=== PATIENT | female | born 1980 | race African-American/Black ===

== ENCOUNTER 2016-07-23 07:14 | Outpatient (CLI) | payer MEDICAID ==
[~2016-07-23] VITALS: Ht 172.7 cm; Wt 100.0 kg
[2016-07-23 07:30] VITALS: BP 131/85; PULSE 96; TEMP 98.5
[2016-07-23 09:20] VITALS: BP 132/79; PULSE 98
[2016-07-23 10:15] VITALS: BP 124/68; PULSE 89
== END 2016-07-23 11:00 | disposition home or self-care (01) ==
LOC: LDRO 07:14
DX: Z02.89 Encounter for other administrative examinations (principal)

== ENCOUNTER 2016-07-24 07:17 | Inpatient (IN) | payer MEDICAID ==
[~2016-07-24] VITALS: Ht 172.7 cm; Wt 99.1 kg
[2016-07-24] VITALS (62 sets, daily range): BP systolic 102–161; BP diastolic 51–94; PULSE 79–116; TEMP 97.9–99
[2016-07-24 09:40] LABS: AMPHETAMINE URINE NEGATIVE; BARBITURATES URINE NEGATIVE; BENZODIAZEPINES URINE NEGATIVE; BUPRENORPHINE URINE NEGATIVE; METHADONE URINE NEGATIVE; OPIATES URINE NEGATIVE; OXYCODONE URINE NEGATIVE; PHENCYCLIDINE URINE NEGATIVE; PROPOXYPHENE URINE NEGATIVE; THC CANNABINOIDS URINE NEGATIVE
[2016-07-24 09:47] LABS: BASO % 0.3 % (0.0-2.0); EOS # 0.1 (0.0-0.7); EOS % 1.4 % (0-4.0); GRAN # 4.7 (1.4-6.5); GRAN % 67.8 % (42.2-75.2); LYMPH # 1.6 (1.2-3.4); LYMPH % 23.3 % (20.0-51.0); MEAN CELL VOLUME 66 fl (80.0-100.0); MEAN CORPUSCULAR HGB CONC 32 g/dl (33.0-37.0); MONO # 0.5 (0.1-0.6); MONO % 6.5 % (1.7-9.3); PLATELET COUNT 176 K/mm3 (130-400); REDCELL DISTRIBUTION WIDTH-CV 17.7 % (11.5-14.5)
[2016-07-24 09:48] LABS: HEMATOCRIT 31.8 % (37.0-47.0); HEMOGLOBIN 10.1 g/dl (12.5-16.0); MEAN CORPUSCULAR HEMOGLOBIN 21 pg (27.0-31.0)
[2016-07-25] VITALS (10 sets, daily range): BP systolic 112–137; BP diastolic 56–74; PULSE 71–107; TEMP 98.1–98.7
[2016-07-25] MEDS ORDERED: IBU600 MG PO (10:21)
[2016-07-25] MEDS ORDERED: PERCOCET 325 MG1 TA2 PO (10:21)
[2016-07-26 07:36] VITALS: BP 129/69; PULSE 85; TEMP 97.4
[2016-07-26 07:37] LABS: BASO % 0.2 % (0.0-2.0); EOS # 0.1 (0.0-0.7); GRAN % 67.7 % (42.2-75.2); LYMPH # 2.2 (1.2-3.4); LYMPH % 24.8 % (20.0-51.0); MEAN CELL VOLUME 69 fl (80.0-100.0); MEAN CORPUSCULAR HGB CONC 30 g/dl (33.0-37.0); MONO # 0.5 (0.1-0.6); MONO % 5.8 % (1.7-9.3); PLATELET COUNT 183 K/mm3 (130-400); RED BLOOD COUNT 4.45 M/mm3 (4.10-5.30); REDCELL DISTRIBUTION WIDTH-CV 17.8 % (11.5-14.5); WHITE BLOOD COUNT 8.8 K/mm3 (4.8-10.8)
[2016-07-26 08:17] LABS: HEMATOCRIT 30.7 % (37.0-47.0); HEMOGLOBIN 9.2 g/dl (12.5-16.0); MEAN CORPUSCULAR HEMOGLOBIN 21 pg (27.0-31.0)
== END 2016-07-26 17:00 | disposition home or self-care (01) | DRG 766 ==
LOC: LDRO 07:17 → LDR 07:25 → OB 07-25
PROVIDERS: Student in an Organized Health Care Education/Training Program
PROC: 10D00Z1 Extraction of Products of Conception, Low, Open Approach (ICD-10-PCS; principal; 2016-07-24)
PROC: 3E033VJ Introduction of Other Hormone into Peripheral Vein, Percutaneous Approach (ICD-10-PCS; 2016-07-24)
DX: O48.0 Post-term pregnancy (principal); O09.33 Supervision of pregnancy with insufficient antenatal care, third trimester; O62.0 Primary inadequate contractions; O69.81X0 Labor and delivery complicated by cord around neck, without compression, not applicable or unspecified; O34.13 Maternal care for benign tumor of corpus uteri, third trimester; D25.2 Subserosal leiomyoma of uterus; O99.02 Anemia complicating childbirth; D64.9 Anemia, unspecified; Z3A.40 40 weeks gestation of pregnancy; Z37.0 Single live birth
CPT/HCPCS: J0690; J1885; J2175; J2270; J2370; J2405; J2540; J2590; J7120